=== PATIENT | male | born 1985 | race African-American/Black ===

== ENCOUNTER 2019-09-29 15:30 | Observation (INO) | payer OTHER ==
[~2019-09-29] VITALS: Ht 177.8 cm; Wt 104.5 kg
[2019-09-29 15:56] VITALS: BP 139/983
[2019-09-29 16:01] VITALS: BP 117/76
[2019-09-29 16:08] LABS: BASOPHILS 0.6 % (0-2); EOSINOPHILS 2.8 % (0-7); HEMATOCRIT 45.8 % (42.0-54.0); HEMOGLOBIN 14.5 g/dL (13.5-17.5); IMMATURE GRANULOCYTES 0.2 % (0-5); LYMPHOCYTES 48.2 % (15-50); MCH 24.9 pg (26.0-34.0); MCHC 31.7 g/dL (31.0-37.0); MCV 78.6 fL (80.0-100.0); MEAN PLATELET VOLUME 10.8 fL (7.4-10.4); NEUTROPHILS 34.2 % (40-80); PLATELET COUNT 224 10x3/uL (130-400); RBC 5.83 10x6/uL (4.20-6.10); RDW 15.8 % (11.5-14.5); WBC 4.7 10x3/uL (4.8-10.8)
[2019-09-29 16:11] VITALS: BP 113/74
[2019-09-29 16:21] LABS: APTT 29.4 SECONDS (22.8-39.4); INR 0.86 (0.85-1.17); PROTIME 11.7 SECONDS (11.6-15.0)
[2019-09-29 16:28] LABS: CALC OSMOLALITY 278 mosm/kg (275-300); CALCIUM 8.6 mg/dL (8.5-10.1); CARBON DIOXIDE 30.6 mmol/L (21.0-32.0); CHLORIDE - SERUM 102 mmol/L (98-107); CREATININE - SERUM 1.2 mg/dL (0.6-1.3); GLUCOSE 101 mg/dL (74-106); POTASSIUM - SERUM 3.9 mmol/L (3.5-5.1); SODIUM 139 mmol/L (136-145); UREA NITROGEN 15 mg/dL (7-18); eGFR NON AFRICAN AMERICAN 74 mL/min (90-120)
[2019-09-29 16:42] LABS: ALBUMIN 3.7 g/dL (3.4-5.0); ALKALINE PHOSPHATASE 57 U/L (30-120); ALT (SGPT) 66 U/L (10-68); BILIRUBIN - TOTAL 0.31 mg/dL (0.2-1.3); CKMB 4.5 U/L (0.0-3.6); CREATINE KINASE 621 UL (21-232); MAGNESIUM - SERUM 1.7 mg/dL (1.8-2.4)
[2019-09-29 16:44] LABS: TROPONIN-I < 0.017 ng/mL (0.000-0.060)
[2019-09-29 17:31] VITALS: BP 133/96
--- NOTE | 2019-09-29 17:32 | NUR ---
resting states "still some right chest pressure"
--- NOTE | 2019-09-29 19:10 | NUR ---
REPORT TO MERRITT BERG
--- NOTE | 2019-09-29 20:17 | NUR ---
RECEIVED REPORT FROM ORA. PATIENT ARRIVED VIA WHEELCHAIR. PATIENT IS ALERT AND ORIENTED, RESTING COMFORTABLY IN BED. RESPIRATIONS ARE EVEN AND UNLABORED. NO S/S OF DISTRESS. NO C/O PAIN. CALL LIGHT WITHIN REACH. WILL CPOC.
[2019-09-29 22:11] LABS: CREATINE KINASE 547 UL (21-232)
[2019-09-29 22:12] LABS: TROPONIN-I < 0.017 ng/mL (0.000-0.060)
[2019-09-29 22:24] VITALS: BP 129/84; BMI 33.0
[2019-09-30] VITALS: BP 114/70
[2019-09-30 04:00] VITALS: BP 116/80
[2019-09-30 05:53] LABS: HEMOGLOBIN 14.2 g/dL (13.5-17.5); MCH 24.5 pg (26.0-34.0); MCHC 30.9 g/dL (31.0-37.0); MCV 79.4 fL (80.0-100.0); MEAN PLATELET VOLUME 11.2 fL (7.4-10.4); PLATELET COUNT 224 10x3/uL (130-400); RBC 5.79 10x6/uL (4.20-6.10); RDW 15.9 % (11.5-14.5)
[2019-09-30 06:19] LABS: CALC OSMOLALITY 280 mosm/kg (275-300); CALCIUM 8.1 mg/dL (8.5-10.1); CARBON DIOXIDE 27.1 mmol/L (21.0-32.0); CHLORIDE - SERUM 105 mmol/L (98-107); CKMB 2.2 U/L (0.0-3.6); CREATINE KINASE 432 UL (21-232); GLUCOSE 82 mg/dL (74-106); PHOSPHOROUS 4.1 mg/dL (2.5-4.9); SODIUM 141 mmol/L (136-145); TROPONIN-I < 0.017 ng/mL (0.000-0.060); UREA NITROGEN 14 mg/dL (7-18); eGFR NON AFRICAN AMERICAN > 90 mL/min (90-120)
--- NOTE | 2019-09-30 07:15 | NUR ---
RECEIVED PT SITTING UP IN CHAIR AAOX4 RESP UNLABORED DENIES ANY NEEDS OR DISCOMFORT AT THIS TIME
[2019-09-30 10:08] VITALS: BP 145/82
[2019-09-30 10:45] LABS: CKMB 2.3 U/L (0.0-3.6); CREATINE KINASE 410 UL (21-232); TROPONIN-I < 0.017 ng/mL (0.000-0.060)
[2019-09-30 10:46] VITALS: Ht 177.8 cm; Wt 104.5 kg
[2019-09-30 12:01] LABS: EOSINOPHILS 3 % (0-7); LYMPHOCYTES 49 % (15-50); MONOCYTES 11 % (2-11); NEUTROPHILS 37 % (40-80); PLATELET ESTIMATE NORMAL
[2019-09-30 12:03] LABS: ROULEAUX OCC
--- NOTE | 2019-09-30 19:05 | NUR ---
REVIEWED DISCHARGE INSTRUCTIONS WITH PT STATES UNDERSTANDING COPY GIVEN DCD SALINE LOCK TO LAC WITH IV CATHETER INTACT SITE FREE OF REDNESS OR EDEMA PT DISCHARGED HOME IN STABLE CONDITION WITH ALL PERSONAL BELONGINGS LEFT UNTI VIA W/C
--- NOTE | 2019-10-01 13:05 | MORECARE ---
CASE MANAGEMENT DISCHARGE SUMMARY PATIENT: HANK SALAZAR UNIT: [id number] ADM DATE: 09/29/19 AGE: 33 : 85 SEX: M ROOM/BED: D.2122 AUTHOR: DENNIS MEHTA PHYSICIAN: REFERRING PHYSICIAN: KARYNA RIVERA MD DATE OF SERVICE: 10/01/19 Discharge Plan Patient Name: [facility] [facility] 1985 Planned Disposition: Anticipated Discharge Date: Discharge Date: 09/30/2019 Expected LOS: Initial Reviewer: [email or web address] Initial Review Date: 10/01/2019 Generated: 10/01/19 2:04 pm Patient Name: HANK SALAZAR Page [id number] at 1305 All edits/amendments must be made on the electronic document DICTATION DATE: 10/01/19 1304 SASH MAKER: TAMI 10/01/19 1304 RPT#: [id number] DC DATE:09/30/19 STATUS: DIS IN [facility] [address] [place] [address] END OF REPORT
--- NOTE | 2019-10-01 13:13 | MORECARE ---
CASE MANAGEMENT DISCHARGE SUMMARY PATIENT: HANK SALAZAR UNIT: [id number] ADM DATE: 09/29/19 AGE: 33 : 85 SEX: M ROOM/BED: D.2122 AUTHOR: DENNIS MEHTA PHYSICIAN: REFERRING PHYSICIAN: KARYNA RIVERA MD DATE OF SERVICE: 10/01/19 Discharge Plan Patient Name: HANK SALAZAR [facility] [facility] 1985 Planned Disposition: Anticipated Discharge Date: Discharge Date: 09/30/2019 Expected LOS: 0 Initial Reviewer: [id number] Initial Review Date: 10/01/2019 Generated: 10/01/19 2:12 pm Last DP export: 10/01/19 12:05 p Patient Name: HANK SALAZAR Page [id number] at 1313 All edits/amendments must be made on the electronic document DICTATION DATE: 10/01/19 1312 DIRECTOR OF RESOURCE DEVELOPMENT: DM 10/01/19 1312 RPT#: [id number] DC DATE:09/30/19 STATUS: DIS IN [facility] [address] [place] [address] END OF REPORT
== END 2019-09-30 19:29 | disposition home or self-care (01) ==
LOC: D.ER 15:30 → D.M2 19:14 → OBSVTIME 09-30 12:04 → D.M2 09-30 19:29
PROVIDERS: Family Medicine; ADMIT Internal Medicine Nephrology; ATTEND Internal Medicine Nephrology
DX: R07.9 Chest pain, unspecified (principal); R94.31 Abnormal electrocardiogram [ECG] [EKG]; F17.203 Nicotine dependence unspecified, with withdrawal; F10.20 Alcohol dependence, uncomplicated; F19.20 Other psychoactive substance dependence, uncomplicated; E83.42 Hypomagnesemia; D50.9 Iron deficiency anemia, unspecified